=== PATIENT | male | born 1965 | race Caucasian/White ===

== ENCOUNTER 2020-04-23 11:53 | Emergency (ER) | payer SELFPAY ==
[2020-04-23 12:03] VITALS: BP 152/98; PULSE 105; RESP 18; TEMP 36.8; O2SAT 96; BMI 23.8
--- NOTE | 2020-04-23 13:43 | CT_ITS ---
WS: [id number] CT HEAD NONCONTRAST HISTORY: Symptoms of Acute Stroke TECHNIQUE: Contiguous axial imaging performed through the brain in 2.5 mm imaging. Bone and soft tiss ue windows. Sagittal and coronal reformats reviewed. All CT scans at [facility] use at le ast one of these dose optimization techniques: automated exposure control; mA and/or kV adjustment pe r patient size (includes targeted exams where dose is matched to clinical indication); or iterative r econstruction. DLP: 802.28 mGy.cm COMPARISON: None available. No acute intracranial hemorrhage, midline shift or mass effect. By history patient had a recent intra cranial bleed. There is very minimal increased density along the tentorium which could be the result of a small subdural bleed. No atrophy or prior infarcts or herniation. Very minimal low-attenuation in the basal ganglia RIGHT greater than LEFT. Ventricles: Normal size with no hydrocephalus. Paranasal sinuses: As visualized are clear. Mastoid air cells: Well pneumatized. Calvarium and scalp: Skull is intact with no soft tissue edema or swelling. CT/CT head wo con* [id number] IMPRESSION: 1. No acute intracranial hemorrhage or edema. 2. Patient gives a history of recent intracranial hemorrhage. I cannot confirm acute blood products on this exam. Indeterminate increased density along the t entorium. Could be a resolving or resolved small bleed. 3. Minimal microvascular ischemic disease which is chronic. Notified Jules Germain DO at 04/23/2020 2:18 PM.
--- NOTE | 2020-04-23 13:43 | XRR_ITS ---
PROCEDURE INFORMATION: Exam: XR Chest, 1 View Exam date and time: 04/23/2020 1:57 PM Age: 54 years old Clinical indication: Shortness of breath; Chest pain TECHNIQUE: Imaging protocol: XR of the chest Views: 1 view. COMPARISON: No relevant prior studies available. FINDINGS: Lungs: Unremarkable. No consolidation. Pleural space: Unremarkable. No pleural effusion. No pneumothorax. Heart/Mediastinum: Unremarkable. No cardiomegaly. Bones/joints: Unremarkable. XR/XR chest 1V portable [id number] IMPRESSION: No acute findings.
--- NOTE | 2020-04-23 14:00 | W.ED.NEUROSD ---
HPI - Neuro Symptoms/Deficit General: Chief Complaint: Neuro Symptoms/Deficit Stated Complaint: Seen @ [facility] for stroke on 04/22 Time Seen by Provider: 04/23/20 13:31 History of Present Illness: HPI Narrative: 4-year-old male who returns to the emergency room after being seen yesterday [place]. At that time evidently he had a intracranial bleed he refused to be flown to a tertiary care center instead went home presents today his main request I came in the room was to be referred to a neurologist he does say has continuing worsening left-sided weakness in his arm as well as some facial weakness. Onset (ago): day(s) Location: speech, left face, dysarthria and left arm History of same: Yes Severity: moderate Quality: weak Relieving factors: none Exacerbating factors: none Context: sudden onset On Anticoagulants: No Associated symptoms: Reports chest pain (Single episode yesterday); Deny cough, diaphoresis, fevers/chills, headache(s), anorexia, malaise, nausea, seizures, short of breath, syncope, tingling, vertigo, vomiting or weakness Treatments Prior to Arrival: none Review of Systems Const: Denies: malaise or diaphoresis ENMT: Denies: throat pain, ear or mastoid pain, nasal discharge or nasal congestion Card: Reports: chest pain (Single episode yesterday); Denies: syncope Resp: Denies: dyspnea, productive cough or non-productive cough GI: Denies: nausea or vomiting : Denies: flank pain, dysuria, urinary frequency or urinary urgency Skin/Breast: Denies: rash or pruritus Neuro: Denies: headache(s) or vertigo NIH stroke score NIHSS: Level Of Consciousness - 1a: 0 Level Of Consciousness Questions - 1b: Both Correct Level Of Consciousness Commands - 1c: Both Correct Best Gaze - 2: Normal Visual Hua - 3: No Visual Loss Facial Palsy - 4: Normal Motor Arm Right - 5: No Drift Motor Arm Left - 5: No Drift Motor Leg Right - 6: No Drift Motor Leg Left - 6: No Drift Limb Ataxia - 7: Absent Sensory - 8: Normal Best Language - 9: No Aphasia Dysarthia - 10: Normal Extinction And Inattention - 11: 0 Score: Total Score: 0 Physical Exam Const: COMMON NORMALS: no acute distress GENERAL APPEARANCE: cooperative and comfortable ORIENTATION/CONSCIOUSNESS: Yes awake, Yes oriented to person, Yes oriented to place and Yes oriented to time HENMT: COMMON NORMALS: normocephalic, atraumatic and hearing grossly normal bilaterally HEAD & SCALP: normocephalic and atraumatic Eye: COMMON NORMALS: Equal, round and reactive pupils present, EOMs intact bilaterally, conjunctivae normal and no scleral icterus CONJUNCTIVA: Yes conjunctivae normal PUPIL: Yes Equal, round and reactive pupils present Neck/C-Spine: COMMON NORMALS: full ROM, no lymphadenopathy, supple and no JVD Lymph: LYMPHATIC: no lymphadenopathy noted and no lymphedema noted Resp: COMMON NORMALS: normal respiratory effort, No retractions, No use of accessory muscles and clear to auscultation bilaterally AUSCULTATION: clear to auscultation bilaterally Cardio: COMMON NORMALS: no JVD, regular rate, regular rhythm and No murmurs present (Cardio) RATE: regular rate RHYTHM: regular rhythm GI: COMMON NORMALS: Soft to palpation and No hepatosplenomegaly present AUSCULTATION: Yes normoactive bowel sounds PALPATION: Yes Soft to palpation, No Tenderness to palpation present (GI), No Guarding due to palpation present (GI) and Yes No hepatosplenomegaly present Extremity: COMMON NORMALS: normal to inspection, capillary refill normal, no clubbing, cyanosis or edema, no calf tenderness and no pedal edema Neuro: SENSORIUM/ORIENTATION: Yes oriented to person, Yes oriented to place and Yes oriented to time Skin: COMMON NORMALS: no rashes or lesions noted GENERAL SKIN EXAM: no rashes or lesions noted Course Vital Signs: Vital signs: Vital Signs Temperature 98.2 F 04/23/20 12:03 Pulse Rate 70 04/23/20 16:05 Respiratory Rate 15 04/23/20 16:05 Blood Pressure 143/79 04/23/20 16:05 Pulse Oximetry 98 04/23/20 16:05 MDM - Neuro Symptoms/Deficit MDM Narrative: Medical decision making narrative: Was able to get a copy of the report from [place] and there was no cranial bleeding. Repeat CT today did not show anything he does have a little bit of a left-sided facial droop and a little bit of left arm ataxia but he states it has been going on for a couple of days now. We will go ahead and get him set up for carotid ultrasound and MRI of the head without with and without contrast follow-up appointment with neurology. Encourage the patient on abstinence from methamphetamines as he did past positive he was very fidgety when he was in the room suspect he may have been under the influence at the time as well. This will obviously worsen his potential for CVA with long-term sequela. We did start him on amlodipine 5 mg daily and asked him to take a baby aspirin daily as well. Lab Data: Labs: Lab Results 04/23/20 04/23/20 04/23/20 Range/Units 14:10 14:10 14:10 WBC 6.6 (4.0-10.0) 10^3/ uL RBC 4.90 (4.1-5.3) 10^6/u L Hgb 15.5 (11.7-16.6) g/dL Hct 46.6 (42.0-52.0) % MCV 95.1 H (80-94) fL MCH 31.6 (28.0-34.0) pg MCHC 33.3 (30.0-36.0) g/dL RDW 12.7 (12.1-15.1) % Plt Count 219 (130-400) 10^3/c mm MPV 10.1 (7.4-10.4) fL Neut % (Auto) 69.4 % Lymph % (Auto) 19.9 % Canadian % (Auto) 6.9 % Eos % (Auto) 2.7 % Baso % (Auto) 0.8 % Neut # (Auto) 4.59 (1.8-7.7) 10^3/u L Lymph # (Auto) 1.3 (0.8-4.8) 10^3/u L Canadian # (Auto) 0.5 (0.2-0.9) 10^3/u L Eos # (Auto) 0.2 (0.0-0.8) 10^3/u L Baso # (Auto) 0.1 (0.0-0.1) 10^3/u L Nucleated RBC % (a uto) 0 % Nucleated RBCs # 0.0 /100WBC PT 12.30 (12.1-14.9) SECO NDS INR 0.89 (0.8-1.2) APTT 29.1 (23.9-36.7) SECO NDS Sodium 135 L (136-145) mmol/L Potassium 4.2 (3.5-5.1) mmol/L Chloride 98 (98-107) mmol/L Carbon Dioxide 26 (22-29) mmol/L Anion Gap 15.2 (5-19) BUN 14 (6-20) mg/dL Creatinine 0.8 (0.7-1.2) mg/dL GFR Calculation 101.5 (90-130) mL/min Glucose 104 (65-115) mg/dL Calculated Osmolal ity 281 L (285-295) mOsm/k g Calcium 9.5 (8.5-10.5) mg/dL Total Bilirubin 0.3 (0.15-1.2) mg/dL AST 25 (0-40) U/L ALT 26 (0-41) U/L Alkaline Phosphata se 94 (40-130) IU/L Troponin T Baselin e (0-15) ng/L Total Protein 7.1 (6.6-8.7) g/dL Albumin 4.5 (3.5-5.2) g/dL Globulin 2.6 (1.3-4.6) g/dL Urine Color (Yellow) Urine Appearance (CLEAR) Urine pH (5-7) Ur Specific Gravit y (1.005-1.030) Urine Protein (Negative) Urine Glucose (UA) (Normal) Urine Ketones (Negative) Urine Blood (Negative) Urine Nitrate (Negative) Urine Bilirubin (Negative) Urine Urobilinogen (Negative) mg/dL Ur Leukocyte Luh ase (Negative) Urine Opiates Scre en (Negative) ng/mL Ur Barbiturates Sc reen (Negative) ng/mL Ur Phencyclidine S crn (Negative) ng/mL Ur Amphetamines Sc reen (Negative) ng/mL U Benzodiazepines Scrn (Negative) ng/mL Urine Cocaine Scre en (Negative) ng/mL U Marijuana (THC) Screen (Negative) ng/mL 04/23/20 04/23/20 04/23/20 Range/Units 14:10 15:15 15:15 WBC (4.0-10.0) 10^3/ uL RBC (4.1-5.3) 10^6/u L Hgb (11.7-16.6) g/dL Hct (42.0-52.0) % MCV (80-94) fL MCH (28.0-34.0) pg MCHC (30.0-36.0) g/dL RDW (12.1-15.1) % Plt Count (130-400) 10^3/c mm MPV (7.4-10.4) fL Neut % (Auto) % Lymph % (Auto) % Canadian % (Auto) % Eos % (Auto) % Baso % (Auto) % Neut # (Auto) (1.8-7.7) 10^3/u L Lymph # (Auto) (0.8-4.8) 10^3/u L Canadian # (Auto) (0.2-0.9) 10^3/u L Eos # (Auto) (0.0-0.8) 10^3/u L Baso # (Auto) (0.0-0.1) 10^3/u L Nucleated RBC % (a uto) % Nucleated RBCs # /100WBC PT (12.1-14.9) SECO NDS INR (0.8-1.2) APTT (23.9-36.7) SECO NDS Sodium (136-145) mmol/L Potassium (3.5-5.1) mmol/L Chloride (98-107) mmol/L Carbon Dioxide (22-29) mmol/L Anion Gap (5-19) BUN (6-20) mg/dL Creatinine (0.7-1.2) mg/dL GFR Calculation (90-130) mL/min Glucose (65-115) mg/dL Calculated Osmolal ity (285-295) mOsm/k g Calcium (8.5-10.5) mg/dL Total Bilirubin (0.15-1.2) mg/dL AST (0-40) U/L ALT (0-41) U/L Alkaline Phosphata se (40-130) IU/L Troponin T Baselin e 17 H (0-15) ng/L Total Protein (6.6-8.7) g/dL Albumin (3.5-5.2) g/dL Globulin (1.3-4.6) g/dL Urine Color Yellow (Yellow) Urine Appearance Clear (CLEAR) Urine pH 6.5 (5-7) Ur Specific Gravit y 1.005 (1.005-1.030) Urine Protein Neg (Negative) Urine Glucose (UA) Norm (Normal) Urine Ketones Negative (Negative) Urine Blood Neg (Negative) Urine Nitrate Negative (Negative) Urine Bilirubin Neg (Negative) Urine Urobilinogen Norm (Negative) mg/dL Ur Leukocyte Luh ase Negative (Negative) Urine Opiates Scre en Negative (Negative) ng/mL Ur Barbiturates Sc reen Negative (Negative) ng/mL Ur Phencyclidine S crn Negative (Negative) ng/mL Ur Amphetamines Sc reen Positive H (Negative) ng/mL U Benzodiazepines Scrn Negative (Negative) ng/mL Urine Cocaine Scre en Negative (Negative) ng/mL U Marijuana (THC) Screen Negative (Negative) ng/mL Discharge Plan Discharge Patient Disposition: Home Clinical Impression: Cerebrovascular accident Condition: Stable Prescriptions: New amlodipine 5 mg tablet 5 mg PO DAILY Qty: 30 RF: 0 Discharge Orders: Discharge Order (Routine); Ordered 04/23/20 Ordered By: Jules Germain Discharge Diet: Usual diet Discharge Activity: Increase activity as tolerated Activity Restrictions/Additional Instructions: A appointment for echocardiogram carotid ultrasound and MRI of the head. Appointment with the neurologist as well as make Discharge Date/Time: 04/23/20 16:06 Coding Level of Care Code ED Commodity Manager for Malcolm Whitehead
[2020-04-23 14:17] LABS: Basophils # 0.1 10^3/uL (0.0-0.1); Basophils % 0.8 %; Eosinophils # 0.2 10^3/uL (0.0-0.8); Eosinophils % 2.7 %; Hematocrit 46.6 % (42.0-52.0); Hemoglobin 15.5 g/dL (11.7-16.6); Lymphocytes # 1.3 10^3/uL (0.8-4.8); Lymphocytes % 19.9 %; Mean Corpuscular HGB Conc 33.3 g/dL (30.0-36.0); Mean Corpuscular Hemoglobin 31.6 pg (28.0-34.0); Mean Corpuscular Volume 95.1 fL (80-94); Mean Platelet Volume 10.1 fL (7.4-10.4); Monocytes # 0.5 10^3/uL (0.2-0.9); Monocytes % 6.9 %; Neutrophils # 4.59 10^3/uL (1.8-7.7); Neutrophils % 69.4 %; Nucleated Red Blood Cells % 0 %; Platelet Count 219 10^3/cmm (130-400); Red Cell Distribution Width 12.7 % (12.1-15.1); White Blood Count 6.6 10^3/uL (4.0-10.0)
[2020-04-23 14:37] LABS: Alanine Aminotransferase 26 U/L (0-41); Albumin Level 4.5 g/dL (3.5-5.2); Alkaline Phosphatase 94 IU/L (40-130); Aspartate Amino Transferase 25 U/L (0-40); Blood Urea Nitrogen 14 mg/dL (6-20); Calcium 9.5 mg/dL (8.5-10.5); Carbon Dioxide 26 mmol/L (22-29); Chloride 98 mmol/L (98-107); Creatinine Clr Calc Pharmacy 123.4139; Globulin 2.6 g/dL (1.3-4.6); Glomerular Filtration Rate 101.5 mL/min (90-130); Glucose 104 mg/dL (65-115); Osmolality Calculated 281 mOsm/kg (285-295); Sodium 135 mmol/L (136-145); Total Bilirubin 0.3 mg/dL (0.15-1.2); Total Protein 7.1 g/dL (6.6-8.7); Troponin(5th) Baseline 17 ng/L (0-15)
[2020-04-23 14:38] LABS: INR 0.89 (0.8-1.2)
[2020-04-23 14:39] LABS: Anion Gap 15.2 (5-19); Partial Thromboplastin Time 29.1 SECONDS (23.9-36.7); Potassium 4.2 mmol/L (3.5-5.1)
[2020-04-23 15:23] LABS: Add Urine Microscopic? NO
[2020-04-23 15:44] LABS: Bilirubin Urine Neg (Negative); Blood Urine Neg (Negative); Glucose Urine UA Norm (Normal); Ketones Urine Negative (Negative); Leukocyte Esterase Urine Negative (Negative); Nitrate Urine Negative (Negative); Protein Urine Neg (Negative); Specific Gravity, Urine 1.005 (1.005-1.030); Urine Appearance Clear (CLEAR); Urine Color Yellow (Yellow); Urobilinogen Urine Norm (Negative); pH Urine 6.5 (5-7)
[2020-04-23 15:53] LABS: Amphetamines Screen Urine Positive (Negative); Barbiturates Screen Urine Negative (Negative); Benzodiazepines Screen Urine Negative (Negative); Cocaine Screen Urine Negative (Negative); Opiate Screen Urine Negative (Negative); PCP Screen Urine Negative (Negative); THC Screen Urine Negative (Negative)
[2020-04-23 16:05] VITALS: BP 143/79; PULSE 70; RESP 15; O2SAT 98
--- NOTE | 2020-04-23 19:43 | ECG_ITS ---
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 Measurements Intervals [place] Rate: 89 P: 61 HI: 160 QRS: -5 QRSD: 90 T: 36 QT: 381 QTc: 466 Interpretive Statements SINUS RHYTHM WITH OCCASIONAL SUPRAVENTRICULAR PREMATURE COMPLEXES POSSIBLE LEFT ATRIAL ENLARGEMENT [-0.1mV P WAVE IN V1/V2] POSSIBLE LEFT VENTRICULAR HYPERTROPHY [VOLTAGE CRITERIA PLUS LAE OR QRS WIDENING] POSSIBLE SEPTAL MYOCARDIAL INFARCTION [30 ms Q WAVE IN V1/V2], OF INDETERMINATE AGE No previous ECG available for comparison Electronically Signed On 04-23-2020 21:47:07 CDT by Carloz Dumont M.D. [email or web address]
--- NOTE | 2020-04-24 13:54 | DCPLANNER ---
Patient had message to schedule an outpatient MRI of the head, echo cardiogram, and a carotid duplex for patient. media traffic manager faxed order to centralized scheduling. media traffic manager will call for appointment information.
--- NOTE | 2020-05-03 14:16 | DCPLANNER ---
Patient has a follow up appointment scheduled for Thursday, May 28, 2020 at 10:15 for an echo, 11:00 for a carotid duplex, and 11:45 for an MRI. Centralized scheduling will call patient with appointment information.
--- NOTE | 2020-06-06 12:24 | DCPLANNER ---
Patient had an out patient MRi, echo and carotid duplex scheduled for 05.28.20 - patient did not attend appointments.
== END 2020-04-23 16:06 | disposition home or self-care (01) ==
PROVIDERS: Emergency Provider Family Medicine
DX: I63.9 Cerebral infarction, unspecified (principal)
CPT/HCPCS: 12345; 36415; 70450; 71045; 80053; 80306; 81003; 84484; 85025; 85610; 85730; 93005; 99281; 99283

== ENCOUNTER 2022-02-11 12:55 | Emergency (ER) | payer SELFPAY ==
[2022-02-11 13:07] VITALS: BP 154/95; PULSE 99; RESP 16; TEMP 36.4; O2SAT 98; BMI 24.6
--- NOTE | 2022-02-11 13:42 | ED_ITS ---
HPI - Male Genitourinary General: Chief complaint: Urogenital-Male Stated complaint: Fell, hurt in groin area Time Seen by Provider: 02/11/22 13:41 History of Present Illness: 56-year-old male patient comes in today for complaints of right inguinal discomfort. Patient reports that he has a hernia there but he slipped today while climbing up to a goss fruit or nut picker and felt a sudden pain and discomfort with enlargement of the hernia. Patient appears nontoxic. Patient appears in no acute distress. Patient appears in mild pain. Review of Systems General: Reports: 10 or more systems reviewed and unremarkable except in HPI and below Card: Denies: chest pain Resp: Denies: dyspnea GI: Reports: other (Right inguinal hernia) Physical Exam Const: COMMON NORMALS: alert HENMT: COMMON NORMALS: normocephalic HEAD & SCALP: normocephalic Neck/C-Spine: COMMON NORMALS: full ROM Resp: COMMON NORMALS: normal respiratory effort and clear to auscultation bilaterally AUSCULTATION: clear to auscultation bilaterally Cardio: COMMON NORMALS: regular rate RATE: regular rate GI: COMMON NORMALS: Soft to palpation INSPECTION: Yes normal to inspection AUSCULTATION: Yes normoactive bowel sounds PALPATION: Yes Soft to palpation, No Tenderness to palpation present (GI) and No Rebound tenderness present : TESTES: Yes testicular lie normal OTHER: Right inguinal hernia, easily reducible, no redness or inflammation. Neuro: SENSORIUM/ORIENTATION: Yes alert Course Vital Signs: Vital signs: Vital Signs Temperature 97.6 F 02/11/22 13:07 Pulse Rate 99 02/11/22 13:07 Respiratory Rate 14 02/11/22 13:54 Blood Pressure 154/95 02/11/22 13:07 Pulse Oximetry 98 02/11/22 13:07 Oxygen Delivery Me thod 02/11/22 13:07 [facility] - Male Medical Decision Making 56-year-old male patient comes in today for concerns of a right inguinal hernia. On exam patient has a palpable right inguinal hernia. No redness or induration is noted to the skin tissue. Bowel sounds are present. Abdomen soft nontender. Vital signs are normal except for some mild elevation in blood pressure. Differential diagnosis includes but not limited to incarcerated hernia, reducible hernia, bowel obstruction. No signs of bowel obstruction or incarcerated hernia is noted. Patient was given a dose of morphine and hernia was easily reduced. Discussed with patient that that hernia may protrude out again but should be easily to reduce. Recommended follow-up with surgeon for further treatment and evaluation with surgical repair. Patient reported understanding. Discharge Plan Discharge Patient Disposition: Home Clinical Impression: Inguinal hernia Condition: Stable Discharge Orders: Discharge ED (Routine); Ordered 02/11/22 Ordered By: Hermann Deras Discharge Diet: Usual diet Discharge Activity: Increase activity as tolerated Patient Instructions: Inguinal Hernia (ED), Opioid Safety Activity Restrictions/Additional Instructions: Follow-up with surgeon for further evaluation and treatment. Avoid heavy lifting. Follow-up with primary care as needed. Return to ER for increased pain, redness to the hernia site, blood in vomit or stool, or fever greater than 100.4. Coding Level of Care Code ED Rn Relief Charge for Malcolm Whitehead
[2022-02-11 13:54] VITALS: RESP 14
[2022-02-11] MEDS: morphine 4 mg/mL SDV 1 mL IVP (13:54)
[2022-02-11 14:39] VITALS: BP 165/95; PULSE 89; RESP 16; TEMP 36.3; O2SAT 96
--- NOTE | 2022-02-13 07:56 | DCPLANNER ---
Addendum entered by Lenore Anguiano 02/25/22 16:34: Patient had a follow up appointment scheduled with general surgery - patient did attend appointment. Addendum entered by Lenore Anguiano 02/14/22 12:37: Patient has a follow up appointment scheduled for Thursday, February 19, 2022 at 2:[address] Thomas. Clinic will call patient with appointment information. Original Note: general manager food had message to schedule a follow up appointment for patient with general surgery. general manager food sent patients information to the front office staff at general surgery. Patients information will be printed and reviewed. Clinic will call patient with appointment information.
== END 2022-02-11 14:42 | disposition home or self-care (01) ==
PROVIDERS: Emergency Provider Nurse Practitioner Family
DX: K40.90 Unilateral inguinal hernia, without obstruction or gangrene, not specified as recurrent (principal)
CPT/HCPCS: 96374; 99284; J2270

== ENCOUNTER 2022-03-11 10:32 | Day surgery (SDC) | payer SELFPAY ==
[2022-03-07 11:37] VITALS: BMI 24.0
[2022-03-11] VITALS (12 sets, daily range): BP systolic 141–162; BP diastolic 83–98; PULSE 68–85; RESP 12–25; TEMP 36.2–36.3; O2SAT 93–98
[2022-03-11] MEDS: sodium chloride 0.9% 1,000 ML 30 ML IV (11:17)
[2022-03-11] MEDS: heparin 5,000 unit/mL INJ 1 mL 2000 UNIT SUBCUT (11:19)
[2022-03-11] MEDS: acetaminophen 1,000 MG/100 ML PIGGYBACK 400 MG IV (11:19)
--- NOTE | 2022-03-11 12:09 | ANES.PREANE2 ---
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 a couple of months ago Exam alert, oriented x 3, clear to auscultation bilaterally and regular rate & rhythm Airway Mallampati: Class II Dentition: chipped Neuropsych Cerebrovascular Accident Anesthetic Plan ASA status: 2 Anesthesia: General Risk of > 500 ml blood loss (7ml/kg in children): No Medications/Allergies Home Medications Medication Instructions Recorded Confirmed Last Taken Type aspirin 81 mg capsule 81 mg PO DAILY 02/19/22 03/11/22 03/10/22 History Allergies Allergy/AdvReac Type Severity Reaction Status Date / Time Penicillins Allergy Unknown Unknown Verified 03/11/22 10:53 latex Allergy ALGY-Rash Verified 03/11/22 10:53 Current Medications Generic Name Dose Route Start Last Admin Trade Name Freq PRN Reason Stop Dose Admin Sodium Chloride 1,000 mls @ 30 mls/hr 03/11/22 10:45 03/11/22 11:17 Sodium Chloride 0.9% IV 03/12/22 10:44 30 mls/hr .Q24H EDGARDO Administration PFSH Anesthesia Social History (System 03/07/22 @ 15:33 by Evelyn Laboy) Smoking and tobacco status: current every day smoker Data Anesthesia Cardiac Studies: No Data to Display
--- NOTE | 2022-03-11 12:24 | W.PM.OPSUD ---
Surgery/Procedure H&P Update DATE OF PROCEDURE: March 11, 2022 DATE H&P PERFORMED: 02/19/22 H&P UPDATE INFORMATION: I have reviewed H&P completed within last 30 days, I have examined patient prior to procedure and No changes to prior documentation PREOP DIAGNOSIS: Right inguinal Hernia PRIMARY INDICATION FOR PROCEDURE: The same PLANNED PROCEDURE: Operation Date: 03/11/22 12:30 Proposed Procedures p right sided hernia repair lap ,K40.90(Right) - Kirit Thomas MD
[2022-03-11] MEDS: ciprofloxacin 400 MG/200 ML PREMIX 200 MG IV (12:45)
--- NOTE | 2022-03-11 14:13 | P.OP_ITS ---
Operative Report Date of procedure: March 11, 2022 Pre-op diagnosis: Preop Diagnosis Right inguinal Hernia Post-op diagnosis: Supraumbilical hernia Right indirect inguinal hernia Lipoma of the cord Procedure done: Laparoscopic right inguinal hernia repair with mesh placement Laparoscopic excision of lipoma of the cord Supraumbilical hernia repair Implants: Large 3D mesh on the right side Specimens removed/disposition: Lipoma of the cord Supraumbilical hernial content Surgeon: Kirit Thomas MD Diamond Driller Helper: Surgical jorge alberto Ballesteros Circulating nurse Maggie Anesthesia: General (ARTEMIOA STEVENSON Cintron) Estimated blood loss (mL): 5 IV fluids (mL): 1,000 Procedure: Patient was identified in the holding area ,patient was transferred to the operating room where he was placed in supine position, with both arms were tucked, antibiotic was given with induction, endotracheal tube was placed per anesthesia, Fuller catheter was inserted by the circulating nurse and revealed clear urine, prep and drape of the abdomen was done under the usual sterile technique as well as the scrotal area. Time-out was done verifying the patient's name/date of /planned procedure destination after the procedure, all were in agreement. SCDs confirmed to be functioning, preoperative antibiotics administered per protocol, and beta jacky protocol was confirmed. A vertical skin incision of 1.2 cm was made with 11 blade knife through the supra umbilicus ,incision was carried down to the subcutaneous tissue and deepened to identify the anterior fascia a small supraumbilical preperitoneal fat was identified and dissected and sent out giving behind a small fascial defect less than a centimeter in diameter which was extended, two stay sutures were applied to the fascia, and safe entrance to the abdominal cavity was achieved, a Douglas trocar technique safe entry to the abdominal cavity was achieved verified by using 10 mm zero degree laparoscopy, switched to a 30 degrees scope,low flow followed by a higher flow of CO2 gas up to 15 mmHg. There was no evidence of injury to intra-abdominal structures from the port entry, attention was deviated to both groins, there was a large direct hernia defect with herniation of peritoneum and preperitoneal fat was noted on the right side, two 5 mm ports were placed on the right and left lateral aspect of the abdomen slightly above the level of the umbilicus, under direct visualization, anesthesia 2% lidocaine local was injected at all trocar sites prior to incisions.No evidence of herniation on the left side. The peritoneum above the level of the iliopubic tract was incised to the right of the midline and dissection was performed to create a preperitoneal space medial to lateral aspect up to anterior superior iliac spine on the right side. Dissection was continued onto the medial aspect and the right spermatic cord was identified, there was evidence of indirect inguinal hernia .the sac was dissected. As it applied medial to the right inferior epigastric vessels/ dissection was performed to clear the space lateral to the spermatic cord and dorsomedial to it, the hernia sac was reduced and retracted far back, so there was an evidence of a small lipoma of the cord that was excised and sent for permanent pathology. Then a large right 3-D mesh was rolled and placed into the abdominal cavity through the Douglas port, after the mesh was introduced it was positioned to lie in the myopectineal orifice and the mesh was unrolled and this covered the entire my myope pectineal orifice. Intra-abdominal pressure was dropped to 12 mmHg to help placement of the mesh good position On the lateral aspect of the mesh extended up to the anterior superior iliac spine on the medial aspect the mesh crossed the midline onto the left side, then using absorbable tacks, placed above the iliopubic tract onto the rectus abdominis muscle on the medial aspect and also to the lateral abdominal wall superomedial to the sacroiliac spine, then the mesh was also anchored to the pubis and the Richard's ligament inferiorly. The peritoneal leaflets were then brought together to cover the mesh and isolated from the other viscera, extra tacks were used to secure the peritoneum in good position. Final look demonstrated good hemostasis and the mesh in good position A total of 20 mL Exparel 40 ml Normal saline 20 ml bupivacaine 0.25% were injected at the remaining of the tacks site and trocar sites as well Final look demonstrated good hemostasis.Then the fascia on the supra umbilical fascial defect was closed using #1 PDS sutures under direct visualization using fascial closure device Kentrell Carmen.All ports were removed,then the abdomen was desufflated. All skin incisions were closed with 4-0 Monocryl subcuticular suture and Dermabond was applied. The patient tolerated the procedure well, Fuller catheter was taken out ,got extubated and was transferred to the recovery area in stable condition All counts of instruments, needles and sponges were completed I was present for the whole entire procedure
--- NOTE | 2022-03-11 15:31 | ANE.PACU2 ---
Inpatient post-anesthesia follow up: Airway intact: Yes Vital signs: Temperature 97.4 F Pulse Rate 82 Respiratory Rate 18 Blood Pressure 147/91 Pulse Oximetry 98 Oxygen Delivery Me thod Room Air Oxygen Flow Rate 2 Fraction of Inspir ed Oxygen Hydration adequate: Yes Nausea and vomiting: No Pain level: 1 Mental status: Baseline
== END 2022-03-11 16:00 | disposition home or self-care (01) ==
PROVIDERS: Visit Provider Surgery
PROC: (CPT 49650; principal; 2022-03-11 12:20)
DX: K40.90 Unilateral inguinal hernia, without obstruction or gangrene, not specified as recurrent (principal); K42.9 Umbilical hernia without obstruction or gangrene; D17.6 Benign lipomatous neoplasm of spermatic cord; F17.200 Nicotine dependence, unspecified, uncomplicated; Z79.82 Long term (current) use of aspirin; Z86.73 Personal history of transient ischemic attack (TIA), and cerebral infarction without residual deficits; Z88.0 Allergy status to penicillin; Z91.040 Latex allergy status
CPT/HCPCS: 49653; 51702; 88302; 88304; C1781; C9290; J0330; J0744; J1100; J1170; J1644; J2250; J2405; J2704; J3010; J3490; J7030; P9041